=== PATIENT | female | born 1980 | race Caucasian/White ===

== ENCOUNTER 2016-06-13 05:15 | Observation (INO) | payer MEDICAID ==
[~2016-06-13] VITALS: Ht 167.6 cm; Wt 85.1 kg
[~2016-06-13 05:15] MED LIST: BUPIVACAINE/PF 0.5% ONE
[2016-06-13] MEDS ORDERED: FENTANYL PF 250 MCG/5ML ONE (06:27)
[2016-06-13] MEDS ORDERED: MIDAZOLAM 1 MG/ML, 2ML ONE (06:28)
[2016-06-13] MEDS ORDERED: DEXAMETHASONE 4 MG/ML, 5ML ONE (06:31)
[2016-06-13] MEDS ORDERED: ONDANSETRON 2MG/ML, 2ML ONE (06:31)
[2016-06-13] MEDS ORDERED: PROPOFOL 10 MG/ML, 20ML ONE (06:31)
[2016-06-13] MEDS ORDERED: CLINDAMYCIN 150 MG/ML, 6ML ONE (06:37)
[2016-06-13] MEDS ORDERED: ALBUTEROL/IPRATROPIUM 2.5MG/0.5MG, 3 ML NPPB PRN (08:00)
[2016-06-13] MEDS ORDERED: MEPERIDINE/PF 25MG/0.5ML IVPush PRN (08:00)
[2016-06-13] MEDS ORDERED: MIDAZOLAM 1 MG/ML, 2ML IV PRN (08:00)
[2016-06-13] MEDS ORDERED: ACETAMINOPHEN 325 MG TABLET PO PRN (08:00)
[2016-06-13] MEDS ORDERED: OXYcodone 5 MG/5 ML ORAL.SOL UDC PO PRN ×3 (08:00→17:00)
[2016-06-13] MEDS ORDERED: PROMETHAZINE 25 MG/ML, 1ML IV PRN (08:00)
[2016-06-13] MEDS ORDERED: LABETALOL 5MG/ML, 20ML IV PRN (08:00)
[2016-06-13] MEDS ORDERED: ONDANSETRON 2MG/ML, 2ML IVPush PRN (08:00)
[2016-06-13] MEDS ORDERED: hydrALAzine 20 MG/ML, 1ML IV PRN (08:00)
[2016-06-13] MEDS ORDERED: BACITRACIN 50,000 UNIT ONE (08:39)
[2016-06-13] MEDS ORDERED: HYDROmorphone 1 MG/ML, 1ML ONE (08:54)
[2016-06-13] MEDS: HYDROmorphone 1 MG/ML, 1ML IV PRN ×4 (09:30→10:13)
[2016-06-13] MEDS ORDERED: HYDROmorphone 2 MG/ML, 1ML ONE (09:31)
[2016-06-13] MEDS ORDERED: OXYcodone 5 MG/5 ML ORAL.SOL UDC ONE (09:32)
[2016-06-13] MEDS ORDERED: FENTANYL PF 100 MCG/2ML ONE (09:54)
[2016-06-13] MEDS: FENTANYL PF 100 MCG/2ML IV PRN ×2 (09:55→10:14)
[2016-06-13] MEDS ORDERED: PLEASE ENTER HEIGHT AND WEIGHT MC SCH (11:00)
[2016-06-13] MEDS ORDERED: KETOROLAC 30 MG/1 ML IV SCH (12:30)
[2016-06-13] MEDS: morphine SULFATE 10 MG/ML, 1ML IV PRN ×3 (12:35→14:02)
[2016-06-13 13:00] VITALS: BP 127/74
[2016-06-13] MEDS ORDERED: MORPHINE SULFATE 4 MG/ML, 1ML ONE (13:58)
[2016-06-13 17:04] VITALS: BP 131/77
== END 2016-06-13 17:10 | disposition home or self-care (01) ==
LOC: OUT 05:15 → 4NOR 05:20 → OUT 10:49
PROVIDERS: ADMIT Orthopaedic Surgery; ATTEND Orthopaedic Surgery
DX: S61.210A Laceration without foreign body of right index finger without damage to nail, initial encounter (principal); S61.212A Laceration without foreign body of right middle finger without damage to nail, initial encounter; S61.214A Laceration without foreign body of right ring finger without damage to nail, initial encounter; S61.216A Laceration without foreign body of right little finger without damage to nail, initial encounter; Y04.0XXA Assault by unarmed brawl or fight, initial encounter; Y93.89 Activity, other specified; Y92.89 Other specified places as the place of occurrence of the external cause; Y99.8 Other external cause status
CPT/HCPCS: 26350; 36415; 64836; 69990; 84703; 96374; 96375; 96376; C1763; G0378; J1100; J1170; J1885; J2250; J2270; J2405; J2704; J3010; J3490